=== PATIENT | male | born 1955 | race Caucasian/White ===

== ENCOUNTER 2017-04-28 14:48 | Observation (INO) | payer OTHER ==
[2017-04-28 15:05] LABS: Lavender RECEIVED; Red RECEIVED
[2017-04-28] MEDS ORDERED: Morphine 2 MG/ML SYRINGE ONE ×2 (15:17)
[2017-04-28] MEDS ORDERED: Acetaminophen 500 MG TAB ONE (15:19)
--- NOTE | 2017-04-28 15:47 | RAD ---
RIGHT FOREARM TWO VIEWS: History: Injury with pain. FINDINGS: No evidence of fracture. No osseous lesions seen. IMPRESSION: No acute abnormality identified. POS: [facility]
--- NOTE | 2017-04-28 15:51 | RAD ---
LEFT HAND: 04/28/17 Three views. HISTORY: Injury to left hand with pain. Carpals appear unremarkable. Metacarpals and phalanges appear intact. IMPRESSION: No evidence of acute fracture. POS: [facility]
--- NOTE | 2017-04-28 15:53 | CT ---
NONCONTRAST HEAD CT: History: Level II trauma. Head injury, laceration. 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 Comparison: None. Technique: Noncontrast head CT is performed from skull base to skull vertex. FINDINGS: Adequate aeration of the visualized sinuses and mastoid air cells. Calvarium appears to be intact. Th ere is soft tissue swelling, hematoma, and subcutaneous emphysema compatible with a soft tissue injur y. There is hyperdensity along the left frontal convexity as well as along the left sylvian fissure sugg esting a combination of subarachnoid as well as possible subdural blood. Small amounts of hyperdensit y along the right frontal convexity as well as on the anterior falx may be present. There is some loss of cortical mejia white matter differentiation and possible edema involving the lef t frontal lobe suggesting a nonhemorrhagic contusion. IMPRESSION: 1. Intracranial hemorrhage, post-traumatic, as described above. 2. Nonhemorrhagic contusion left frontal lobe. 3. Post-traumatic change involving the scalp as defined above. Results of study discussed with Dr. Cunnnigham 04-28-17 at 3:36 p.m. POS: [facility]
--- NOTE | 2017-04-28 16:11 | CT ---
CT CERVICAL SPINE: 04/28/17 Multiple axial tomograms obtained through the cervical spine with multiplanar reconstruction. HISTORY: Level II trauma. Work injury with injury to head and neck. Cervical vertebra maintain height and alignment. Disc spaces are preserved. No evidence of cervical s pine fracture identified. IMPRESSION: No evidence of cervical spine fracture. Findings relayed to the Emergency Department by phone. Code CR POS: [facility]
[2017-04-28] MEDS ORDERED: Adacel (T-DAP) 0.5 ML VIAL ONE (18:59)
[2017-04-28] MEDS ORDERED: Ondansetron ODT 4 MG TAB SL PRN (19:47)
[2017-04-28] MEDS ORDERED: Ondansetron HCl/PF 4 MG/2 ML Vial IVP PRN ×2 (19:47→19:50)
[2017-04-28] MEDS ORDERED: Dextrose 5% in Water 1,000 ML IV PRN (19:50)
[2017-04-28] MEDS ORDERED: traMADol HCl 50 MG TAB PO PRN (19:50)
[2017-04-28] MEDS ORDERED: Dextrose 50% Abboject 50 ML SYRINGE SLOW IVP PRN (19:50)
--- NOTE | 2017-04-28 20:08 | PRG ---
DATE OF SERVICE: 04/28/2017 TIME OF SERVICE: 07:34 p.m. SUBJECTIVE: Mr. Joy is seen and examined in the stroke unit. Please see Georgina Estes' full adm it H and P for details. Small subdural hematoma after sustaining a trauma to the head. He is hemody namically and neurologically stable. PLAN: Plan is to admission to stroke unit for observation, serial neuro exams. Repeat CT scan in th e morning. Trauma Service to take over his care in the morning.
[2017-04-28 20:22] LABS: #Eosinphils 0.1 thou/uL (0.0-0.7); #Lymphocytes 1.7 thou/uL (1.20-3.40); #Monocytes 0.8 thou/uL (0.11-0.59); #Neutrophils 5.1 thou/uL (1.40-6.50); %Basophils 0.6 % (0.0-1.0); %Eosinophils 0.9 % (0.0-10.0); %Lymphocytes 22.2 % (21.0-51.0); %Monocytes 10.4 % (0.0-10.0); Hemoglobin 13.3 g/dL (14.0-18.0); Mean Corpuscular HGB CONC 34.7 g/dL (32.0-36.0); Mean Corpuscular Hemoglobin 33.3 pg (27.0-31.0); Mean Platelet Volume 6.8 fL (7.4-10.4); Platelet Count 246 thou/uL (130-400); RBC Distribution Width 10.7 % (11.5-14.5); Red Blood Cell (RBC) Count 3.99 mill/uL (4.70-6.10); White Blood Cell (WBC) Count 7.7 thou/uL (4.8-10.8)
[2017-04-28 20:48] LABS: Anion Gap 13 mmol/L (10-20); BUN (Urea Nitrogen) 14 mg/dL (8.4-25.7); Calc. Creatinine Clearance 0 mL/min (70-130); Calcium 9.2 mg/dL (7.8-10.44); Carbon Dioxide 24 mmol/L (23-31); Chloride 103 mmol/L (98-107); Estimated GFR-MDRD Greater than 90; Glucose 95 mg/dL (80-115); Potassium 3.7 mmol/L (3.5-5.1); Sodium 136 mmol/L (136-145)
[2017-04-28] MEDS: Lisinopril 20 MG TAB PO SCH (21:10)
[2017-04-28] MEDS: Metoprolol Tartrate 25 MG TAB PO SCH (21:11)
[2017-04-28] MEDS: Acetaminophen 500 MG TAB PO PRN (21:12)
[2017-04-28] MEDS ORDERED: hydrALAZINE 20 MG/ML VIAL SLOW IVP PRN (22:15)
--- NOTE | 2017-04-29 02:05 | HP ---
DATE OF ADMISSION: 04/28/2017 REQUESTING PHYSICIAN: Dr. Orosco, ER. ADMITTING PHYSICIAN: Dr. Pulliam. CONSULTING PHYSICIAN: Dr. Faust, Neurosurgery. HISTORY OF PRESENT ILLNESS: Mr. 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 The patient was wearing all of his safety gear including a hard hat. He was knocked to the ground and had LOC for approximately 30-40 seconds. He remembers all details up until when he was struck in the head. The witnesses to the event summoned EMS. The patient was subsequently transported to [facility] where workup identified a left frontal contusion, small subdural hematoma and subarachnoid hemorrhage. Neurosurgery was consulted by the ER physician. Trauma Surgery was then consulted for admission and management. The patient has complained of headache. He denies nausea, vomiting, vision changes, sensory deficits, headache, blurred vision. He does complain of pain to frontal and occipital scalp where small lacerations are that have been repaired with abdulaziz by the ER physician. He apparently was GCS of 14 on EMS arrival. He is reportedly GCS of 15 since he has been in the emergency department. Cervical collar was cleared by the ER physician. ALLERGIES: No known drug allergies. CURRENT MEDICATIONS: Lisinopril 20 mg b.i.d., metoprolol 12.5 mg b.i.d., hydrochlorothiazide unknown dosage. PAST MEDICAL HISTORY: Hypertension. PAST SURGICAL HISTORY: Left inguinal hernia repair, unknown year. SOCIAL HISTORY: Tobacco, none. Alcohol, 2-3 beers 2-3 times per week. Drugs, none. LABORATORY STUDIES: Pending. DIAGNOSTIC IMAGING: Brain CT significant for left frontal lobe contusion and subdural hematoma. REVIEW OF SYSTEMS: Other than as listed above in HPI, review of systems is negative. PHYSICAL EXAMINATION: VITAL SIGNS: Blood pressure of 134/78, pulse 83, respirations 16, O2 sat 95% on room air. HEENT: Laceration to parietal area of scalp and occipital area of scalp closed with abdualziz. No active bleeding. No mastoid ecchymosis. No periorbital ecchymosis. Trachea, midline. NECK: Nontender. No JVD. PULMONARY: Bilateral breath sounds clear. No respiratory distress. Respirations even and nonlabored. CARDIOVASCULAR: Heart sounds normal, regular rate and rhythm. ABDOMEN: Soft, nontender, nondistended. Bowel sounds normal. BACK: Nontender. Normal appearing. EXTREMITIES: Moves all extremities well. No trauma noted. NEUROLOGIC: GCS 15, awake, alert, oriented x3, no focal deficits, no weakness. PSYCHIATRIC: Normal mood and affect. ASSESSMENT: 1. Blunt force trauma to head with pipe with brief loss of consciousness. 2. Left frontal lobe contusion. 3. Small subdural hematoma. 4. Subarachnoid hemorrhage 5. Scalp laceration. 6. History of hypertension, present on admission. PLAN: 1. Admit to stroke unit. 2. Neurosurgery consult, discussed with CHERRI Adamson. 3. Repeat CT scan in a.m. 4. Oral analgesia. 5. After discussion with Neurosurgery, patient may have regular diet. 6. Bed rest with head of bed at 30 degrees. 7. Q.2 hour neuro checks, notify Neurosurgery with any changes. 8. Restart home blood pressure medicine. The patient was reviewed with Dr. Pulliam, attending surgeon, at the time of this dictation. Dr. Pulliam in agreement with plan. [facility]
[2017-04-29 02:52] VITALS: BMI 23.1
--- NOTE | 2017-04-29 06:32 | CON ---
DATE OF CONSULTATION: 04/29/2017 Juan Diego Marcano PA-C dictating for Cesar Faust M.D. This is a 50-minute initial patient consult in which greater than 50% of the exam was spent counselin christine regarding the patient's care. The remainder of the exam was spent in review of patient's medical r ecords and appropriate imaging studies. 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 HISTORY OF PRESENT ILLNESS: Mr. Joy is a 62-year-old male who presents to [facility] for the above complaints. 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 The patient has some headache in the right frontal region, but otherwise has no neck pain. He has no blurred vision, nausea or vomiting, or weakness in the extremities. He was wearing a hard hat when the pipe hit him. Review of patient' s imaging shows no acute fracture of the cervical spine, but does show left sylvian fissure subarachn oid and subdural hematoma. PHYSICAL EXAMINATION: The patient is awake, alert, and appropriate. He has full strength in the anderson ateral upper and bilateral lower extremities. He has no pronator drift. GCS currently is 15. He do es have a right-sided scalp laceration that has been repaired via abdulaziz. His pupils are equal, rou nd, and reactive bilaterally. He is able to correctly define or determine the purpose of a writing p en and correctly defines the definition of an island. IMPRESSION AND DIAGNOSES: Status post oil rig pipe striking the head with mixed traumatic subarachno id and subdural hematoma along the left sylvian fissure and in the left frontal region. PLAN: I have discussed the patient with our trauma colleagues and they will admit the patient. We p misbah to repeat his head CT in the morning. Again, he is cleared off from the cervical spine standpoin t and does not need to be an [place] collar. I discussed the results of the CT scan with the patient a s well as his friend who accompanies him to the emergency room. We have discussed the importance of nicotine cessation as he dips snuff. He is not on any regular blood thinners and I would like these held. His systolic blood pressure should remain less than 160, would like him to have q.2 hour neuro checks. He may eat. We will follow up on the results of his repeat head CT in the morning, sooner should symptoms dictate. Please call with any questions or changes in patient's neurologic status.
--- NOTE | 2017-04-29 07:26 | CT ---
PRELIMINARY REPORT/[facility]/EMERGENCY AFTER HOURS PROCEDURE: EXAM: CT Head Without Intravenous Contrast CLINICAL HISTORY: 62 years old, male; Injury or trauma; Fall; Follow-up exam; Abrasion; Scalp; Injury details: F/u tsah , tsdh TECHNIQUE: Axial computed tomography images of the head/brain without intravenous contrast. COMPARISON: CT Brain WO Con 2017-04-28 15:30 FINDINGS: Small subarachnoid hemorrhage bilaterally and left frontal/midline subdural hematoma are grossly stab le in appearance. Faint left inferior frontal hemorrhagic contusions cannot be completely excluded No midline shift, hydrocephalus or acute territorial infarction. Right-sided scalp laceration redemonstrated. Subcutaneous air tracking into the right suboccipital ti ssues noted No definite calvarial fracture. Minimal polypoid mucosal thickening in the right posterio r ethmoid air cells and right sphenoid sinus IMPRESSION: Grossly stable hemorrhages as described Thank you for allowing us to participate in the care of your patient. Dictated and Authenticated by: Ulysses Jernigan MD 04/29/2017 6:17 AM Central Time ([place] & [place]) FINAL REPORT CT HEAD NONCONTRAST: Date: 04/29/17 HISTORY: Intracranial hemorrhage. Follow-up. COMPARISON: 04/28/17. FINDINGS: The hyperdense fluid associated with the left frontotemporal gyri has decreased slightly since the pr ior study. Parenchymal contusion is also less pronounced. No mass effect or shift of midline structur es. Ventricles appear normal in size, shape, and position. Prominent right posterolateral scalp swell ing and injury are unchanged. IMPRESSION: Partial clearing of the left frontotemporal intracranial hemorrhage. No new abnormalities are demonst rated. POS: [facility]
[2017-04-29] MEDS: Metoprolol Tartrate 25 MG TAB PO SCH (08:15)
[2017-04-29] MEDS: Lisinopril 20 MG TAB PO SCH (08:17)
[2017-04-29] MEDS: Acetaminophen 500 MG TAB PO PRN (08:27)
[2017-04-29] MEDS ORDERED: traMADol HCl 50 MG TAB PO PRN ×2 (10:21→10:25)
--- NOTE | 2017-04-29 10:53 | RAD ---
RADIOGRAPH CHEST 1 VIEW: HISTORY: 62-year-old male status post acute chest trauma. FINDINGS: There are no air space densities, pulmonary edema, pneumothorax, or cardiomegaly. The lateral costop hrenic angles are sharp. IMPRESSION: No acute cardiopulmonary findings. jn POS: [facility]
--- NOTE | 2017-04-29 11:00 | RAD ---
THREE VIEWS LEFT WRIST: History: Trauma, pain. Comparison: None. FINDINGS: Carpal and radiocarpal joint spaces are preserved. No fracture. No cortical irregularity. No perioste al reaction. IMPRESSION: Unremarkable left wrist. POS: [facility]
--- NOTE | 2017-04-29 11:02 | PRG ---
DATE OF SERVICE: 04/29/2017 HISTORY OF PRESENT ILLNESS: Mr. Joy is a 62-year-old man who suffered a blunt trauma to the hea d yesterday by a falling pipe. He suffered the acute traumatic brain injury with left-sided subarach noid hemorrhages. The patient was admitted with serial neurological examination. He has had no sign ificant events overnight. This morning the Maddie coma scale has remained at 15. The patient is co mplaining of some moderate right shoulder and left wrist pain. He moves all extremities and answers questions appropriately. He denies any nausea, vomiting or abdo peggy pain. He reports some headache, which is relieved with oral analgesics. OBJECTIVE: VITAL SIGNS: This morning includes blood pressure 123/70, pulse is 77, respiratory rate is 16, tempe rature 98.7 degrees Fahrenheit, oxygen saturation 96% on room air. HEENT: Reveals scalp wounds which intact, clean and dry. Pupils are equal, round, and reactive to l ight and accommodation. He has no jugular venous distention noted. HEART: Reveals regular rate and rhythm, no murmurs or gallops auscultated. CHEST: Clear to auscultation bilaterally. Breathing is regular and unlabored. ABDOMEN: Soft, nontender, nondistended. EXTREMITIES: Reveals 2+ radial and pedal pulses bilaterally. No ankle edema is present. He has ten derness to palpation of the left wrist with some soft tissue swelling and bruising. No palpable bony deformities. There is also some bruising across the anterior right shoulder. No bony deformities p alpated there as well. SPINE: Cervical spine, thoracic, and lumbar spine are palpated, free of any abnormalities. X-ray of the left wrist revealed no fractures or dislocation. Chest x-ray reveals no acute trauma. I personally reviewed the repeat noncontrast CT scan of the brain this morning which reveals resolvin g left frontotemporal subarachnoid hemorrhages. No mass effects noted. IMPRESSION: 1. Post-injury day #1, status post blunt force trauma to the head. 2. Acute traumatic brain injury with resolving left-sided subarachnoid hemorrhages. The patient has remained neurologically stable. 3. Right shoulder and left wrist sprain. PLAN: 1. Continue with physical and occupational therapy and increase activity as tolerated. 2. Place left wrist splint immobilization for comfort. 3. Advance diet. The patient is otherwise hemodynamically and neurologically stable and will be discharged home once c leared by Neurosurgery. The above findings and plan discussed with the patient who indicates understanding of the information given. I answered his questions.
[2017-04-29 12:02] VITALS: BP 143/74; TEMP 98.8
[2017-04-29] MEDS ORDERED: Acetaminophen 500 MG TAB PO SCH (14:00)
--- NOTE | 2017-04-29 14:21 | PRG ---
DATE OF SERVICE: 04/29/2017 This is a 30 minute initial hospital visit note in which 30 minutes were spent in review the imaging, record, evaluation and examination of the patient and formulation of a plan. Greater than 50% of th e time was spent counseling on Mark Joy. CHIEF COMPLAINT: Left frontal acute subdural hematoma status post right occipital blow to the head a t work. HISTORY OF PRESENT ILLNESS: I reviewed the notes of my colleague Juan Diego Marcano PA-C, and agree wit h its content. Mr. Joy is a very pleasant 62-year-old man. He works on an oil rig onshore. It sounds as if he was struck in the back of the head with pipe and sustained a laceration. He was alec luated and a head CT demonstrated a small left acute subdural hematoma. This is stable on repeat nate ging. He has no complaints at this time. His scalp laceration was repaired with staple closure. PHYSICAL EXAMINATION: His GCS is 15, neurologically intact. IMPRESSION AND PLAN: I let the patient and his know that a repeat head CT was stable. I should note as well he has no evidence of cervical spine acute abnormality. His head is wrapped and iman walton plan for followup in 2 weeks with a repeat head CT and likely removal of his abdulaziz at that time i f it is not done by his primary care physician. I have recommended that he be off work for the next 2 weeks. He may be dismissed whenever deemed appropriate by our consulting teams. He is not on anti platelet or anticoagulant medications. DIAGNOSES: Left acute subdural hematoma status post blunt trauma.
--- NOTE | 2017-04-30 15:27 | DIS ---
DATE OF ADMISSION: 04/28/2017 DATE OF DISCHARGE: 04/29/2017 ADMITTING PHYSICIAN: Dr. Dno Pulliam. DISCHARGING PHYSICIAN: Dr. Sai Shukla. CONSULTING PHYSICIAN: Dr. Cesar Faust, neurosurgery. REASON FOR HOSPITALIZATION: Blunt force trauma to the head. HOSPITAL DIAGNOSES: 1. Left frontal acute subdural hematoma. 2. Scalp laceration. DISCHARGE CONDITION: Good. DISCHARGE DISPOSITION: Home. DISCHARGE MEDICATIONS: Patient may resume all previous home medications. He is also being given a prescription for tramadol. ACTIVITY ORDERS: No work until cleared by Neurosurgery. May otherwise resume normal activity. THERAPY: None. DIET: Regular. FOLLOWUP: In [address] Faust. 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 He was wearing a hard hat. He was knocked to the rig floor. He sustained about 30-40 second loss of consciousness. EMS was then summoned and he was transported to [facility]. A traumatic subarachnoid hemorrhage was identified. Trauma services was consulted for admission. Dr. Faust, neurosurgery was consulted. Scalp lacerations were closed in the ER with abdulaziz by ER physician. He remained GCS 15 during evaluation. He remained hemodynamically stable. He was seen by CHERRI West with Neurosurgery. He was then admitted to the stroke unit for close neurologic observation. The following morning, repeat CT scan was stable. He was cleared for discharge by Dr. Faust. He ambulated with physical therapy and needed no assistance. He was cleared for discharge to home in [place]. He is to remain off work until cleared by Neurosurgery. He was given a prescription for tramadol. He may also resume his home blood pressure medications. Discharge instructions, followup information, and strict return precautions were given to the patient and his family. Patient was seen and examined with Dr. Shukla, who agrees with the assessment and plan for discharge. [facility]
== END 2017-04-29 14:40 | disposition home or self-care (01) ==
LOC: ERS 14:48 → 2SE 18:00 → ERS 19:21
PROVIDERS: ADMIT Surgery; ATTEND Surgery
DX: S01.01XA Laceration without foreign body of scalp, initial encounter (principal); S06.6X0A Traumatic subarachnoid hemorrhage without loss of consciousness, initial encounter; W22.8XXA Striking against or struck by other objects, initial encounter; I10 Essential (primary) hypertension; Z79.899 Other long term (current) drug therapy; Z98.890 Other specified postprocedural states
CPT/HCPCS: 12004; 36415; 70450; 71045; 72125; 80048; 85025; 85610; 90471; 90715; A4216; G0378; G0390; J0360; J2270